=== PATIENT | female | born 1960 | race Caucasian/White ===

== ENCOUNTER 2020-09-26 17:02 | Emergency (ER) | payer OTHER ==
[~2020-09-26 17:02] MED LIST: BACTRIM DS TAB1 EACH PO; PERCOCET 5-3251 EACH PO
[2020-09-26] MEDS ORDERED: MEDROL 4MG DOSEP4 MG PO (18:04)
== END 2020-09-26 18:10 | disposition home or self-care (01) ==
LOC: FER 17:02
DX: G51.0 Bell's palsy (principal); I10 Essential (primary) hypertension; Z87.891 Personal history of nicotine dependence
CPT/HCPCS: 70450